=== PATIENT | male | born 1960 | race Caucasian/White ===

== ENCOUNTER 2017-07-05 10:13 | Emergency (ER) | payer BC, OTHER ==
[~2017-07-05] VITALS: Ht 177.8 cm; Wt 77.9 kg
[~2017-07-05 10:13] MED LIST: HUMALOG SQ; KLOR20TA6 PO; LANTUSP SQ; MAGN400T PO; Z.0.NO CURRENT MEDS
[2017-07-05 10:25] VITALS: BP 144/73; PULSE 66; RESP 16; TEMP 97.6; O2SAT 97
[2017-07-05] MEDS ORDERED: CINNAMON PO (10:43)
[2017-07-05] MEDS ORDERED: SODIUM CHLOR 0.9% 1000 ML INJ 1,000 ML IV ONE ×2 (11:15)
[2017-07-05] MEDS ORDERED: SODIUM CHLORIDE 0.9% FLUSH 10 ML FLUSH IVF PRN (11:15)
--- NOTE | 2017-07-05 11:18 | PD ---
HPI Chief Complaint: Diabetic Time Seen by Provider: 11:00 Travel History International Travel<30 days: No Contact w/Intl Traveler<30days: No Traveled to known affect area: No History of Present Illness HPI Patient is a 56-year-old male who presents the emergency room with his daughter with multiple complaints. Patient reports that he was diagnosed with diabetes a few years ago, he was not placed on any medications, reports that he was just monitoring his blood sugars and monitoring his diet. Reports that he has noticed that his blood sugar had been high in the 500's over the past few weeks. Denies polydipsia as well as polyuria. reports that he has also noticed edema to his feet b/l. Denies any chest pain/sob. Denies any recent travels/ trips. Denies history of PE/DVT. Reports that for the past few years, he has noticed a rash all over his body, reports that his skin feels dry and and flakey. Denies any fever/chills. Reports that his daughter made him come to the ER for evaluation. Patient is a smoker, currently reports that he takes no medications at this time. PFSH Past Medical History Hx Anticoagulant Therapy: No Arthritis: No Asthma: No Autoimmune Disease: No Blood Disorders: No Anxiety: No Depression: No Heart Rhythm Problems: No Cancer: No Cardiovascular Problems: No High Cholesterol: No Chemotherapy: No Chest Pain: No Congestive Heart Failure: No COPD: Yes Cerebrovascular Accident: No Diabetes: Yes Patient Takes Glucophage: No Diminished Hearing: No Endocrine: No GERD: Yes Glaucoma: No Genitourinary: No Headaches: No Hepatitis: No Hiatal Hernia: No Hypertension: No Immune Disorder: No Kidney Stones: No Musculoskeletal: No Neurologic: No Psychiatric: No Reproductive: No Respiratory: Yes Migraines: No Myocardial Infarction: No Pancreatitis: Yes Radiation Therapy: No Renal Failure: Yes (S/P PANCREATITIS) Seizures: No Sickle Cell Disease: No Sleep Apnea: No Thyroid Disease: No Ulcer: Yes Tetanus Vaccination: > 5 Years Influenza Vaccination: No Past Surgical History Abdominal Surgery: Yes (HERNIA REPAIR SURGERY) AICD: No Appendectomy: No Arteriovenous Shunt: No Cardiac Surgery: No Cholecystectomy: No Ear Surgery: No Endocrine Surgery: No Eye Surgery: No Genitourinary Surgery: No Gynecologic Surgery: No Insulin Pump: No Joint Replacement: No Oral Surgery: No Pacemaker: No Thoracic Surgery: No Tonsillectomy: Yes (and adenoids) Other Surgery: Yes Social History Alcohol Use: No Tobacco Use: Yes (1.5 ppd) Substance Use: No Allergies-Medications (Allergen,Severity, Reaction): Coded Allergies: No Known Allergies (Verified Adverse Reaction, Unknown, 07/05/17) Reported Meds & Prescriptions Reported Meds & Active Scripts Active Reported [cinnamon tab] 1 Tab PO BID Review of Systems General / Constitutional: No: Fever Eyes: No: Visual changes HENT: No: Headaches Cardiovascular: No: Chest Pain or Discomfort Respiratory: No: Shortness of Breath Gastrointestinal: No: Nausea, Vomiting, Diarrhea, Abdominal Pain Genitourinary: No: Dysuria Musculoskeletal: Positive: Edema, No: Pain Skin: Positive Itching, Positive Dryness, No Rash Neurologic: No: Weakness Psychiatric: No: Depression Endocrine: No: Polydipsia Hematologic/Lymphatic: No: Easy Bruising Physical Exam Narrative GENERAL: NAD SKIN: Focused skin assessment warm/dry. Patient with dry scaling skin throughout trunk/extremities, there is no redness/cellulitis HEAD: Atraumatic. Normocephalic. EYES: Pupils equal and round. No scleral icterus. No injection or drainage. ENT: No nasal bleeding or discharge. Mucous membranes pink and moist. NECK: Trachea midline. No JVD. CARDIOVASCULAR: Regular rate and rhythm. No murmur appreciated. RESPIRATORY: No accessory muscle use. Clear to auscultation. Breath sounds equal bilaterally. GASTROINTESTINAL: Abdomen soft, non-tender, nondistended. Hepatic and splenic margins not palpable. MUSCULOSKELETAL: No obvious deformities. No clubbing. No cyanosis. +2 pitting edema to b/l lower extremities. NEUROLOGICAL: Awake and alert. No obvious cranial nerve deficits. Motor grossly within normal limits. Normal speech. PSYCHIATRIC: Appropriate mood and affect; insight and judgment normal. Data Data Last Documented VS Vital Signs Date Time Temp Pulse Resp B/P (MAP) Pulse Ox O2 Delivery O2 Flow Rate FiO2 07/05/17 10:25 97.6 66 16 144/73 (96) 97 Orders Orders Basic Metabolic Panel (Bmp) (07/05/17 11:07) Complete Blood Count With Diff (07/05/17 11:07) Ecg Monitoring (07/05/17 11:07) Iv Access Insert/Monitor (07/05/17 11:07) Oximetry (07/05/17 11:07) Sodium Chloride 0.9% Flush (Ns Flush) (07/05/17 11:15) Bedside Glucose KATJA.CSUGAR (07/05/17 11:07) Sodium Chlor 0.9% 1000 Ml Inj (Ns 1000 M (07/05/17 11:15) Sodium Chlor 0.9% 1000 Ml Inj (Ns 1000 M (07/05/17 11:15) MDM Medical Decision Making Medical Screen Exam Complete: Yes Emergency Medical Condition: Yes Medical Record Reviewed: Yes Interpretation(s) Vital Signs Date Time Temp Pulse Resp B/P (MAP) Pulse Ox O2 Delivery O2 Flow Rate FiO2 07/05/17 10:25 97.6 66 16 144/73 (96) 97 Differential Diagnosis Eczema, cellulitis, dermatitis, hyperglycemia, CHF, electrolyte abnormality Narrative Course 56-year-old male who presents the emergency room with multiple complaints. Patient reports that he has had rash to his extremities as well as chest wall for many years, reports that he has diabetes and is currently not taking any medications and has noticed increased blood sugars, reports that he came to the ER reluctantly at the request of his daughter. Discussed with patient need for workup including CBC, BMP, ultrasound of lower extremities. Patient at this time refuses further workup and request to leave AGAINST MEDICAL ADVICE prior to initial workup. AMA: The risks of leaving against medical advice without further evaluation treatment were discussed with the patient. These risks include cardiac dysfunction, cardiac dysrhythmia, possible heart attack, possible stroke or . The patient indicated understanding of these risks and appeared to have the capacity to make this decision. I discussed with patient importance of follow-up with her primary care doctor as his conditions could worsen or progress. Patient instructed me that he will follow up with a primary care doctor soon. Patient was given a referral to the [place] [facility]. Understands that he may return to the ER at any time for evaluation of his symptoms. Diagnosis Primary Impression: Left against medical advice Additional Impressions: Hyperglycemia Rash in adult Eczema Patient Instructions: General Instructions Additional Instructions: Please follow up with your primary care doctor as soon as possible Return to the emergency room as needed or if you would like to be evaluated for your symptoms Disposition: 07 AGAINST MEDICAL ADVICE Condition: Serious RakanAva Jul 05, 2017 11:18
[2017-07-06] MEDS ORDERED: CINN500C2 PO (10:52)
== END 2017-07-05 11:29 | disposition left against medical advice (07) ==
LOC: PHED 10:13
DX: E11.65 Type 2 diabetes mellitus with hyperglycemia (principal); L30.9 Dermatitis, unspecified; J44.9 Chronic obstructive pulmonary disease, unspecified; K21.9 Gastro-esophageal reflux disease without esophagitis; F17.200 Nicotine dependence, unspecified, uncomplicated; Z53.20 Procedure and treatment not carried out because of patient's decision for unspecified reasons
CPT/HCPCS: 99281